=== PATIENT | female | born 1945 | race Caucasian/White ===

== ENCOUNTER 2021-06-21 20:57 | Emergency (ER) | payer OTHER ==
[~2021-06-21] VITALS: Ht 152.4 cm; Wt 48.5 kg
[~2021-06-21 20:57] MED LIST: LISI10TA30 PO; [UNRECOGNIZED DRUG - CODE] PO
[2021-06-21 21:07] VITALS: BP 148/98
--- NOTE | 2021-06-21 22:10 | NUR ---
Patient returned back from radiology dept.
--- NOTE | 2021-06-21 22:51 | NUR ---
Patient ambulated to bed 12.
--- NOTE | 2021-06-21 23:02 | NUR ---
Dr. Valentine at bedside to exam patient.
[2021-06-21] MEDS ORDERED: ALBUTEROL SULFATE/IPRATROPIU 3 ML SOL IH ONE (23:15)
[2021-06-21] MEDS ORDERED: methylPREDNISolone SS 40 MG in WATER STERILE 1 ML IV ONE (23:15)
[2021-06-21] MEDS ORDERED: WATER STERILE 10 ML MC ONE (23:30)
[2021-06-21] MEDS ORDERED: methylPREDNISolone SS 40 MG/ML VIAL ONE (23:30)
--- NOTE | 2021-06-21 23:40 | NUR ---
PLACED PT ON 2L NC AFTER HHN TX BASED ON ABG RESULTS. DR. RODRIGUEZ NOTIFIED. WILL CONTINUE TO MONITOR PT AND WEAN OFF FROM O2.
[2021-06-21 23:42] LABS: BASOPHILS % (AUTO) 0.4 % (0.0-2.0); EOSINOPHILS # (AUTO) 0.1 K/uL (0-0.4); EOSINOPHILS % (AUTO) 2.9 % (0.0-4.0); HEMATOCRIT 39.8 % (36-48); HEMOGLOBIN 13.6 g/dL (12.0-16.0); LYMPHOCYTES # (AUTO) 0.8 K/uL (2.5-16.5); MEAN CORPUSCULAR HEMOGLOBIN 33 pg (27-31); MEAN CORPUSCULAR HGB CONC 34 g/dL (33-37); MEAN CORPUSCULAR VOLUME 97.7 fL (80-94); MONOCYTES # (AUTO) 0.5 K/uL (0.8-1.0); MONOCYTES % (AUTO) 10.9 % (1.7-9.3); NEUTROPHILS # (AUTO) 2.8 K/uL (1.8-7.7); NEUTROPHILS % (AUTO) 67.8 % (42.2-75.2); PLATELET COUNT (AUTO) 233 K/uL (140-450); RED BLOOD CELL COUNT(AUTO) 4.07 MIL/uL (4.20-5.40); RED CELL DISTRIBUTION WIDTH 13.6 % (11.6-13.7); WHITE BLOOD COUNT (AUTO) 4.2 K/uL (4.8-10.8)
--- NOTE | 2021-06-21 23:51 | NUR ---
swabbed patient for kael and influenza A&B given to lab technologist.
[2021-06-22 00:13] LABS: ALBUMIN 3.4 g/dL (3.4-5.0); ANION GAP 11.2 (8-16); ASPARTATE AMINOTRANSFERASE 20 U/L (15-37); CARBON DIOXIDE 28.6 mmol/L (21-32); CHLORIDE 101 mmol/L (98-107); CREATININE 0.8 mg/dL (0.6-1.3); GLUCOSE 109 mg/dL (74-106); POTASSIUM 3.8 mmol/L (3.5-5.1); SODIUM SERUM 137 mmol/L (136-145); UREA NITROGEN, BLOOD 14 mg/dL (7-18)
[2021-06-22] MEDS ORDERED: OSELTAMIVIR PHOSPHATE 75 MG CAP PO ONE (00:35)
[2021-06-22] MEDS ORDERED: AZITHROMYCIN 250 MG TAB PO ONE (00:35)
[2021-06-22] MEDS ORDERED: LEVALBUTEROL 0.63 MG/3 ML NEBU INH ONE (00:35)
[2021-06-22] MEDS ORDERED: AZIT250T4 PO (00:36)
[2021-06-22] MEDS ORDERED: PRED20TA5 PO (00:36)
[2021-06-22] MEDS ORDERED: ALBU0.0912 IH (00:36)
[2021-06-22] MEDS ORDERED: BENZ100C6 PO (00:36)
[2021-06-22] MEDS ORDERED: TAM75 PO (00:36)
--- NOTE | 2021-06-22 01:31 | NUR ---
IV removed, catheter intact and site benign. Applied folded 4x4 gauze and tape to stop bleeding.
[2021-06-22 01:39] VITALS: BP 148/92
--- NOTE | 2021-06-22 01:39 | NUR ---
Patient discharged with v/s stable. Written and verbal after care instructions given and explained. Patient alert, oriented and verbalized understanding of instructions. Ambulatory with steady gait. All questions addressed prior to discharge. ID band removed. Patient advised to follow up with PMD. Rx of albuterol sulfate, azithromycin, benzonatate, and oseltamivir phosphate given. Patient educated on indication of medication including possible reaction and side effects. Opportunity to ask questions provided and answered.
== END 2021-06-22 01:39 | disposition home or self-care (01) ==
LOC: MED 20:57
DX: J45.901 Unspecified asthma with (acute) exacerbation (principal); Z20.822 Contact with and (suspected) exposure to COVID-19; J11.1 Influenza due to unidentified influenza virus with other respiratory manifestations; I10 Essential (primary) hypertension; Z79.899 Other long term (current) drug therapy; Z88.6 Allergy status to analgesic agent; Z88.8 Allergy status to other drugs, medicaments and biological substances; Z88.5 Allergy status to narcotic agent
CPT/HCPCS: 36415; 36600; 71045; 80053; 82803; 83880; 84484; 85025; 85610; 85730; 87426; 87804; 93005; 94640; 96374; 99285; J2920; J7614

== ENCOUNTER 2021-09-19 22:24 | Emergency (ER) | payer OTHER ==
[~2021-09-19] VITALS: Ht 152.4 cm; Wt 45.4 kg
[~2021-09-19 22:24] MED LIST changes: +ALBU0.0912 IH; +AZIT250T4 PO; +BENZ100C6 PO; +PRED20TA5 PO; +TAM75 PO
[2021-09-19 22:35] VITALS: BP 163/83
--- NOTE | 2021-09-19 22:40 | NUR ---
TO LOBBY AFTER TRIAGE. UA CUP GIVEN TO PT
[2021-09-19] MEDS ORDERED: PHEN-1877 PO (23:54)
[2021-09-19] MEDS ORDERED: CEPH500T PO (23:54)
[2021-09-20 00:40] VITALS: BP 163/83
--- NOTE | 2021-09-20 00:40 | NUR ---
Patient discharged with v/s stable. Written and verbal after care instructions given and explained. Patient verbalized understanding. Ambulatory with steady gait. All questions addressed prior to discharge. Advised to follow up with PMD.
== END 2021-09-20 00:40 | disposition home or self-care (01) ==
LOC: MED 22:24
DX: N39.0 Urinary tract infection, site not specified (principal); J45.909 Unspecified asthma, uncomplicated; I10 Essential (primary) hypertension; Z79.82 Long term (current) use of aspirin; Z88.5 Allergy status to narcotic agent; Z91.040 Latex allergy status; Z79.891 Long term (current) use of opiate analgesic
CPT/HCPCS: 81002; 99281; 99282

== ENCOUNTER 2022-03-03 02:17 | Emergency (ER) | payer OTHER ==
[~2022-03-03] VITALS: Ht 152.4 cm; Wt 48.5 kg
[~2022-03-03 02:17] MED LIST changes: +CEPH500T PO; +PHEN-1877 PO
[2022-03-03 02:20] VITALS: BP 176/90
--- NOTE | 2022-03-03 02:20 | NUR ---
to bed ambulatory
[2022-03-03 03:02] VITALS: BP 152/71
== END 2022-03-03 03:00 | disposition home or self-care (01) ==
LOC: MED 02:17
DX: S01.01XA Laceration without foreign body of scalp, initial encounter (principal); J45.909 Unspecified asthma, uncomplicated; F17.210 Nicotine dependence, cigarettes, uncomplicated; Z88.5 Allergy status to narcotic agent; Z79.82 Long term (current) use of aspirin; Z91.040 Latex allergy status; X58.XXXA Exposure to other specified factors, initial encounter; Y93.89 Activity, other specified; Y92.89 Other specified places as the place of occurrence of the external cause; Y99.8 Other external cause status
CPT/HCPCS: 12001; 99282

== ENCOUNTER 2022-11-15 09:15 | Inpatient (IN) | payer OTHER ==
[~2022-11-15] VITALS: Ht 152.4 cm; Wt 44.9 kg
[2022-11-15 09:22] VITALS: BP 174/95; PULSE 87; RESP 14; TEMP 98.4; O2SAT 97
[2022-11-15] MEDS ORDERED: HYDROcodone/APAP 5/325 MG 1 TAB TAB PO ONE (09:55)
[2022-11-15] MEDS ORDERED: LORazepam 2 MG/ML VIAL IVP PRN (14:30)
[2022-11-15] MEDS ORDERED: ALBUTEROL 0.083% 2.5 MG/3 ML NEBU INH PRN (14:30)
[2022-11-15] MEDS ORDERED: ONDANSETRON 4 MG/2 ML VIAL IVP PRN (14:30)
[2022-11-15] MEDS ORDERED: ACETAMINOPHEN 325 MG TAB PO PRN (14:30)
[2022-11-15 17:00] VITALS: BP 155/86; PULSE 70; PULSE 73; RESP 18; TEMP 97.9; O2SAT 98
[2022-11-15 17:02] LABS: BASOPHILS % (AUTO) 0.4 % (0.0-2.0); EOSINOPHILS # (AUTO) 0.1 K/uL (0-0.4); EOSINOPHILS % (AUTO) 2.4 % (0.0-4.0); HEMATOCRIT 33.2 % (36-48); LYMPHOCYTES % (AUTO) 17.5 % (20.5-51.1); MEAN CORPUSCULAR HEMOGLOBIN 30 pg (27-31); MEAN CORPUSCULAR HGB CONC 33 g/dL (33-37); MEAN CORPUSCULAR VOLUME 91.5 fL (80-94); MONOCYTES # (AUTO) 0.7 K/uL (0.8-1.0); MONOCYTES % (AUTO) 12.4 % (1.7-9.3); NEUTROPHILS # (AUTO) 3.7 K/uL (1.8-7.7); NEUTROPHILS % (AUTO) 67.3 % (42.2-75.2); PLATELET COUNT (AUTO) 259 K/uL (140-450); RED BLOOD CELL COUNT(AUTO) 3.63 MIL/uL (4.20-5.40); RED CELL DISTRIBUTION WIDTH 15.9 % (11.6-13.7); WHITE BLOOD COUNT (AUTO) 5.5 K/uL (4.8-10.8)
[2022-11-15 17:22] LABS: ALANINE AMINOTRANSFERASE 26 U/L (12-78); ALBUMIN 2.9 g/dL (3.4-5.0); ALKALINE PHOSPHATASE 67 U/L (50-136); ANION GAP 10.3 (8-16); ASPARTATE AMINOTRANSFERASE 18 U/L (15-37); CALCIUM 7.9 mg/dL (8.5-10.1); CARBON DIOXIDE 27.6 mmol/L (21-32); CHLORIDE 106 mmol/L (98-107); CREATININE 0.7 mg/dL (0.6-1.3); GLUCOSE 84 mg/dL (74-106); SODIUM SERUM 141 mmol/L (136-145); TOTAL BILIRUBIN 0.8 mg/dL (0.0-1.0); UREA NITROGEN, BLOOD 13 mg/dL (7-18)
[2022-11-15 17:25] LABS: LACTIC ACID 1.1 mmol/L (0.4-2.0)
[2022-11-15 17:27] LABS: POTASSIUM 2.9 mmol/L (3.5-5.1)
[2022-11-15 17:32] LABS: INR 0.94 (0.8-1.2); PARTIAL THROMBOPLASTIN TIME 27.6 secs (22-35.6); PROTHROMBIN TIME 9.9 secs (10.8-13.4)
[2022-11-15] MEDS: HYDROcodone/APAP 5/325 MG 1 TAB TAB PO PRN (18:04)
[2022-11-15 20:00] VITALS: BP 139/79; PULSE 75; PULSE 77; RESP 16; RESP 18; TEMP 98.1; O2SAT 98
[2022-11-15] MEDS: POTASSIUM CHLORIDE 10 MEQ TABER PO SCH ×2 (20:17→22:02)
[2022-11-16] VITALS (7 sets, daily range): BP systolic 120–159; BP diastolic 72–89; PULSE 68–78; RESP 18; TEMP 97.1–98.2; O2SAT 95–100
[2022-11-16] MEDS: HYDROcodone/APAP 5/325 MG 1 TAB TAB PO PRN ×4 (04:16→21:23)
[2022-11-16 07:02] LABS: ALANINE AMINOTRANSFERASE 21 U/L (12-78); ALBUMIN 2.7 g/dL (3.4-5.0); ALKALINE PHOSPHATASE 61 U/L (50-136); ANION GAP 11.8 (8-16); ASPARTATE AMINOTRANSFERASE 11 U/L (15-37); CALCIUM 7.6 mg/dL (8.5-10.1); CARBON DIOXIDE 25.1 mmol/L (21-32); CHLORIDE 108 mmol/L (98-107); CREATININE 0.7 mg/dL (0.6-1.3); GLUCOSE 79 mg/dL (74-106); MAGNESIUM 1.7 mg/dL (1.8-2.4); PHOSPHORUS 2.7 mg/dL (2.5-4.9); POTASSIUM 3.9 mmol/L (3.5-5.1); SODIUM SERUM 141 mmol/L (136-145); TOTAL PROTEIN, SERUM 5.8 g/dL (6.4-8.2); UREA NITROGEN, BLOOD 9 mg/dL (7-18)
[2022-11-16 07:27] LABS: BASOPHILS % (AUTO) 0.3 % (0.0-2.0); EOSINOPHILS # (AUTO) 0.1 K/uL (0-0.4); EOSINOPHILS % (AUTO) 2.5 % (0.0-4.0); HEMATOCRIT 33.5 % (36-48); HEMOGLOBIN 11.3 g/dL (12.0-16.0); LYMPHOCYTES # (AUTO) 0.9 K/uL (2.5-16.5); LYMPHOCYTES % (AUTO) 18.3 % (20.5-51.1); MEAN CORPUSCULAR HEMOGLOBIN 31 pg (27-31); MEAN CORPUSCULAR HGB CONC 34 g/dL (33-37); MEAN CORPUSCULAR VOLUME 91.7 fL (80-94); MONOCYTES # (AUTO) 0.6 K/uL (0.8-1.0); MONOCYTES % (AUTO) 12.1 % (1.7-9.3); NEUTROPHILS # (AUTO) 3.3 K/uL (1.8-7.7); NEUTROPHILS % (AUTO) 66.8 % (42.2-75.2); PLATELET COUNT (AUTO) 293 K/uL (140-450); RED BLOOD CELL COUNT(AUTO) 3.65 MIL/uL (4.20-5.40); RED CELL DISTRIBUTION WIDTH 15.7 % (11.6-13.7)
[2022-11-16] MEDS ORDERED: MAG SULF 2000 MG/WATER PREMIX 50 ML IV SCH (10:14)
[2022-11-17] VITALS: BP 131/78; PULSE 68; RESP 18; TEMP 97.8; O2SAT 98
[2022-11-17 04:00] VITALS: BP 128/82; PULSE 72; RESP 18; TEMP 97.6; O2SAT 98
[2022-11-17 07:13] VITALS: O2SAT 97
[2022-11-17 08:00] VITALS: BP 137/95; PULSE 81; RESP 16; TEMP 98.4; O2SAT 99
[2022-11-17] MEDS: HYDROcodone/APAP 5/325 MG 1 TAB TAB PO PRN (10:28)
== END 2022-11-17 12:30 | disposition home health service (06) | DRG 563 ==
LOC: MED 09:15 → MMU 13:44 → MTU 14:57
PROVIDERS: ADMIT Student in an Organized Health Care Education/Training Program; ATTEND Student in an Organized Health Care Education/Training Program
DX: S82.045A Nondisplaced comminuted fracture of left patella, initial encounter for closed fracture (principal); E44.0 Moderate protein-calorie malnutrition; Z68.1 Body mass index [BMI] 19.9 or less, adult; E56.9 Vitamin deficiency, unspecified; W18.39XA Other fall on same level, initial encounter; J45.909 Unspecified asthma, uncomplicated; I10 Essential (primary) hypertension; M25.462 Effusion, left knee; E87.6 Hypokalemia; Y93.89 Activity, other specified; Y92.89 Other specified places as the place of occurrence of the external cause; Y99.8 Other external cause status; Z88.5 Allergy status to narcotic agent; Z88.6 Allergy status to analgesic agent; Z91.041 Radiographic dye allergy status; Z79.899 Other long term (current) drug therapy
CPT/HCPCS: 36415; 70450; 72125; 73502; 73562; 80053; 83605; 83735; 84100; 85025; 85610; 85730; 87040; 97112; 97116; 97163-GP; 97530; 99285; J2060

== ENCOUNTER 2022-11-19 00:30 | Emergency (ER) | payer OTHER ==
[~2022-11-19] VITALS: Ht 152.4 cm; Wt 44.5 kg
[2022-11-19 00:45] VITALS: BP 192/101; PULSE 85; RESP 14; TEMP 97.8; O2SAT 98
[2022-11-19 01:10] VITALS: BP 175/104; PULSE 81; RESP 17
[2022-11-19] MEDS ORDERED: MORPHINE SULFATE 4 MG/ML SYR IVP ONE (01:15)
[2022-11-19 02:00] VITALS: O2SAT 99
[2022-11-19] MEDS ORDERED: NAPR-54 PO (03:05)
== END 2022-11-19 03:18 | disposition home or self-care (01) ==
LOC: MED 00:30
DX: S82.092A Other fracture of left patella, initial encounter for closed fracture (principal); J45.909 Unspecified asthma, uncomplicated; I10 Essential (primary) hypertension; F17.210 Nicotine dependence, cigarettes, uncomplicated; Z79.899 Other long term (current) drug therapy; Z88.5 Allergy status to narcotic agent; Z88.6 Allergy status to analgesic agent; Z88.8 Allergy status to other drugs, medicaments and biological substances; Z98.890 Other specified postprocedural states; W19.XXXA Unspecified fall, initial encounter; Y93.89 Activity, other specified; Y92.89 Other specified places as the place of occurrence of the external cause; Y99.8 Other external cause status
CPT/HCPCS: 96374; 99283; J2270

== ENCOUNTER 2023-01-26 00:14 | Emergency (ER) | payer OTHER ==
[~2023-01-26] VITALS: Ht 152.4 cm; Wt 40.8 kg
[~2023-01-26 00:14] MED LIST changes: +NAPR-54 PO
[2023-01-26 00:23] VITALS: BP 114/92; PULSE 119; RESP 22; TEMP 99.3; O2SAT 97
[2023-01-26 01:43] LABS: FLU A ANTIGEN negative (NEGATIVE); FLU B ANTIGEN NEGATIVE (NEGATIVE)
[2023-01-26] MEDS ORDERED: NACL 0.9% 1,000 ML IV SCH (02:00)
[2023-01-26 03:25] LABS: BASOPHILS % (AUTO) 0.4 % (0.0-2.0); EOSINOPHILS % (AUTO) 0.6 % (0.0-4.0); HEMATOCRIT 36.4 % (36-48); HEMOGLOBIN 12.1 g/dL (12.0-16.0); LYMPHOCYTES # (AUTO) 0.8 K/uL (2.5-16.5); LYMPHOCYTES % (AUTO) 11.2 % (20.5-51.1); MEAN CORPUSCULAR HEMOGLOBIN 30 pg (27-31); MEAN CORPUSCULAR HGB CONC 33 g/dL (33-37); MEAN CORPUSCULAR VOLUME 91.2 fL (80-94); MONOCYTES # (AUTO) 0.7 K/uL (0.8-1.0); MONOCYTES % (AUTO) 9.5 % (1.7-9.3); NEUTROPHILS # (AUTO) 5.5 K/uL (1.8-7.7); NEUTROPHILS % (AUTO) 78.3 % (42.2-75.2); PLATELET COUNT (AUTO) 331 K/uL (140-450); RED BLOOD CELL COUNT(AUTO) 3.99 MIL/uL (4.20-5.40); RED CELL DISTRIBUTION WIDTH 14.8 % (11.6-13.7)
[2023-01-26 03:49] LABS: INR 0.95 (0.8-1.2); PARTIAL THROMBOPLASTIN TIME 28.3 secs (22-35.6)
[2023-01-26 03:51] LABS: ALANINE AMINOTRANSFERASE 19 U/L (12-78); ALBUMIN 3.4 g/dL (3.4-5.0); ALKALINE PHOSPHATASE 95 U/L (50-136); ANION GAP 11.9 (8-16); ASPARTATE AMINOTRANSFERASE 17 U/L (15-37); CALCIUM 8.9 mg/dL (8.5-10.1); CARBON DIOXIDE 29.7 mmol/L (21-32); CHLORIDE 98 mmol/L (98-107); CREATININE 0.8 mg/dL (0.6-1.3); GLUCOSE 114 mg/dL (74-106); POTASSIUM 3.6 mmol/L (3.5-5.1); SODIUM SERUM 136 mmol/L (136-145); TOTAL BILIRUBIN 0.9 mg/dL (0.0-1.0); TOTAL PROTEIN, SERUM 7.1 g/dL (6.4-8.2); UREA NITROGEN, BLOOD 11 mg/dL (7-18)
[2023-01-26 03:55] LABS: LACTIC ACID 1.3 mmol/L (0.4-2.0)
[2023-01-26] MEDS ORDERED: ACETAMINOPHEN EXTRA STRENGTH 500 MG TAB PO ONE (05:05)
[2023-01-26] MEDS ORDERED: ACETAMINOPHEN EXTRA STRENGTH 500 MG TAB ONE (06:18)
[2023-01-26 08:30] LABS: APPEARANCE,URINE CLEAR (CLEAR); BILIRUBIN,URINE NEGATIVE (NEGATIVE); BLOOD, URINE 1+ (NEGATIVE); COLOR,URINE YELLOW (YELLOW); LEUKOCYTE ESTERASE ,URINE NEGATIVE (NEGATIVE); NITRITE, URINE NEGATIVE (NEGATIVE); PROTEIN,URINE NEGATIVE (NEGATIVE); UGLUCOSE NEGATIVE (NEGATIVE); UROBILINOGEN,URINE 0.2 EU/dL (0.2 - 1)
[2023-01-26 12:31] VITALS: BP 138/73; PULSE 73; RESP 16; TEMP 98; O2SAT 98
== END 2023-01-26 12:33 | disposition home or self-care (01) ==
LOC: MED 00:14
DX: J06.9 Acute upper respiratory infection, unspecified (principal); Z20.822 Contact with and (suspected) exposure to COVID-19; J45.909 Unspecified asthma, uncomplicated; I10 Essential (primary) hypertension; Z79.899 Other long term (current) drug therapy
CPT/HCPCS: 36415; 71045; 80053; 81003; 83605; 83880; 84484; 85025; 85610; 85730; 87040; 87086; 87426; 87804; 93005; 96360; 99285; J7030; Q0092